=== PATIENT | female | born 1970 | race Two or more races ===

== ENCOUNTER → 2016-06-16 | Outpatient (CLI) | payer OTHER ==
[~2016-06-16] MED LIST: VICODIN 5-3001 EACH PO
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
== END | disposition home or self-care (01) ==
LOC: CMRI 10:34
DX: M17.12 Unilateral primary osteoarthritis, left knee (principal); M23.42 Loose body in knee, left knee
CPT/HCPCS: 73721